=== PATIENT | male | born 1965 | race Caucasian/White ===

== ENCOUNTER 2020-06-02 11:10 | Day surgery (SDC) | payer MEDICAID ==
[2020-05-31 15:34] LABS: COVID AG,FIA SOURCE NASOPHARYNGEAL
[~2020-06-02 11:10] MED LIST: SODIUM CHLORIDE 0.9% 1,000 ML IV ONE
[2020-06-02] MEDS ORDERED: SODIUM CHLORIDE 0.9% 1,000 ML ONE (11:41)
== END 2020-06-02 15:00 | disposition home or self-care (01) ==
LOC: SURGERY 11:10
PROVIDERS: ATTEND Internal Medicine Gastroenterology
DX: Z12.11 Encounter for screening for malignant neoplasm of colon (principal); K63.5 Polyp of colon; E66.01 Morbid (severe) obesity due to excess calories; I10 Essential (primary) hypertension; Z86.010 Personal history of colon polyps; Z79.899 Other long term (current) drug therapy; Z85.46 Personal history of malignant neoplasm of prostate; Z87.891 Personal history of nicotine dependence
CPT/HCPCS: 45380; 87426; 88305; 93005; C1769; C9803; J7030